=== PATIENT | male | born 1970 | race Caucasian/White ===

== ENCOUNTER 2019-03-04 18:40 | Emergency (ER) | payer OTHER ==
[2019-03-04 18:44] VITALS: BP 130/79; TEMP 97.5; BMI 31.0
[2019-03-04] MEDS: DECADRON 4 MG/ML SDV IM STA (18:55)
[2019-03-04] MEDS: ZOFRAN 4 MG/2 ML IM STA (18:55)
[2019-03-04] MEDS: DILAUDID 1 MG/ML SYRINGE IM STA (18:56)
--- NOTE | 2019-03-04 19:05 | ED.PDOC ---
General ED Provider: Dr. JULIETTE CASTRO-ER Chief Complaint: Back Pain Stated Complaint: my back hurts down to my right foot Time Seen by Physician: 18:45 Mode of Arrival: Walk-In Information Source: Patient, Family Exam Limitations: No limitations Primary Care Provider: JAKE VILLALOBOS Nursing and Triage Documentation Reviewed and Agree: Yes Does patient meet sepsis criteria?: No System Inflammatory Response Syndrome: Not Applicable Sepsis Protocol: For patient's 13 years and over: Temp is 96.8 and below OR 101 and greater Pulse >90 BPM Resp >20/minute Acutely Altered Mental Status Are patient's symptoms suggestive of a new infection, such as: -Pneumonia -Skin, Soft Tissue -Endocarditis -UTI -Bone, Joint Infection -Implantable Device -Acute Abdominal Infection -Wound Infection -Meningitis -Blood Stream Catheter Infection -Unknown Musculoskeletal Complaint Exam - Back Pain Complaint/Exam Mechanism of Injury: Reports: No known trauma Onset/Duration: 24 hrs Symptoms Are: Still present Timing: Constant Episodes Lasting: Hours Initial Severity: Mild Current Severity: Moderate Location: Reports: Discrete Character: Reports: Dull, Aching Aggravating: Reports: Movements, Lifting, Bending Associated Signs and Symptoms: Denies: Swelling, Redness, Bruising, Fever, Weakness, Numbness, Tingling, Abdominal pain, Flank pain, Bladder incontinence, Bowel incontinence, Weight loss, Pain with weight bearing Related History: Reports: Similar episode TAD Risk Factors: Reports: None AAA Risk Factors: Reports: None Cauda Equina Risk Factors: Reports: None Epidural Abcess Risk Factors: Reports: None Related Surgical History: Reports: None Focal Tenderness: Yes Paraspinal Muscle Tenderness: No Paraspinal Muscle Spasm: No Scoliosis: No Lordosis: No Kyphosis: No SLR Test: Right Negative, Left Negative Hip Motion Testing Pain: Right Negative, Left Negative Focal Weakness: Present: None Focal Sensory Loss: Present: None Gait: Present: Normal Differential Diagnoses: Herniated Disk Review of Systems - Review Of Systems Constitutional: Reports: No symptoms Eyes: Reports: No symptoms Ears, Nose, Mouth, Throat: Reports: No symptoms Respiratory: Reports: No symptoms Cardiac: Reports: No symptoms GI: Reports: No symptoms : Reports: No symptoms Musculoskeletal: Reports: Back pain Skin: Reports: No symptoms Neurological: Reports: Numbness Endocrine: Reports: No symptoms Hematologic/Lymphatic: Reports: No symptoms All Other Systems: Reviewed and Negative Past Medical History - Past Medical History Previously Healthy: No Endocrine: Reports: Unknown Cardiovascular: Reports: Unknown Respiratory: Reports: Unknown Hematological: Reports: Unknown Gastrointestinal: Reports: Unknown Genitourinary: Reports: Unknown Neuro/Psych: Reports: Unknown Musculoskeletal: Reports: Unknown Cancer: Reports: Unknown - Surgical History General Surgical History: Reports: Unknown - Family History Family History: Reports: Unknown - Social History Smoking Status: Never smoker Hx Substance Use: No Alcohol Screening: Occasionally - Immunizations Tetanus Shot up to Date: Yes Physical Exam - Physical Exam Appearance: Well-appearing, No pain distress, Well-nourished Eyes: ENRIKE, EOMI, Conjunctiva clear ENT: Ears normal, Nose normal, Oropharynx normal Neck: Supple Respiratory: Airway patent, Breath sounds clear, Breath sounds equal, Respirations nonlabored Cardiovascular: RRR, Pulses normal, No rub, No murmur GI/: Soft, Nontender, No masses, Bowel sounds normal, No Organomegaly Musculoskeletal: Limited ROM, Limited strength Skin: Warm, Dry, Normal color Neurological: Sensation intact, Alert, Oriented Psychiatric: Affect appropriate, Mood appropriate Interpretation - Radiology Interpretation Radiology Interpretation By: Radiologist Radiology Results: Positive Exam Interpreted: CT Scan Critical Care Note - Critical Care Note Total Time (mins): 0 Course - Course Orders, Labs, Meds: Orders Category Date Time Status Dexamethasone 4 mg/ml Inj [Decadron 4 mg/ml Sdv] MEDS 03/04/19 18:46 Discontinued 4 mg IM ONCE STA Hydromorphone HCl [Dilaudid 1 mg/ml Syringe] MEDS 03/04/19 18:47 Discontinued 2 mg IM ONCE STA Ondansetron HCl/Pf [Zofran 4 mg/2 ml] MEDS 03/04/19 18:47 Discontinued 4 mg IM ONCE STA CT LUMBAR SPINE W/O CONTRAST Stat RADS 03/04/19 18:46 Completed Medications Discontinued Medications Generic Name Dose Route Start Last Admin Trade Name Freq PRN Reason Stop Dose Admin Dexamethasone Sodium Phosphate 4 mg 03/04/19 18:46 03/04/19 18:55 Decadron 4 Mg/Ml Sdv IM 03/04/19 18:47 4 mg ONCE STA Administration Hydromorphone HCl 2 mg 03/04/19 18:47 03/04/19 18:56 Dilaudid 1 Mg/Ml Syringe IM 06/09/19 18:48 2 mg ONCE STA Administration Ondansetron HCl 4 mg 03/04/19 18:47 03/04/19 18:55 Zofran 4 Mg/2 Ml IM 03/04/19 18:48 4 mg ONCE STA Administration Vital Signs: Temp Pulse Resp BP Pulse Ox 03/04/19 18:40 97.5 F L 90 18 130/79 95 Departure - Departure Time of Disposition: 19:20 Disposition: HOME SELF-CARE Discharge Problem: Sciatica Qualifiers: Laterality: right Qualified Code(s): M54.31 - Sciatica, right side Instructions: Sciatica (ED) Condition: Good Pt referred to PMD for follow-up: Yes IPMP verified?: No Additional Instructions: f/u with dr villalobos Allergies/Adverse Reactions: Allergies No Known Allergies Allergy (Unverified 03/04/19 18:44) Home Medications: Ambulatory Orders 1 [No Reported Medications] 03/04/19 Disposition Discussed With: Patient, Family
--- NOTE | 2019-03-04 19:17 | CT ---
Exam: CT lumbar spine without intravenous contrast. Comparison: CT abdomen pelvis performed 10/08/2012. Reason for exam: Sciatica. FINDINGS: No vertebral body height loss is seen. No evidence of listhesis. There is multilevel deg enerative disease with intervertebral body disc space height loss and osteophyte formation. T12 - L1: Mild central canal and foraminal narrowing secondary to facet hypertrophy L1-L2: Small broad-based disc bulge with facet hypertrophy resulting in mild central canal and dirk inal narrowing. L2-L3: Small broad-based disc bulge with facet hypertrophy resulting in mild central canal and forami nal narrowing. L3-L4: Broad-based disc bulge with facet hypertrophy resulting in mild to moderate central canal and foraminal narrowing. L4-L5: Broad-based disc bulge with facet hypertrophy resulting in mild to moderate central canal and foraminal narrowing L5-S1: Broad-based disc bulge with facet hypertrophy resulting in mild central canal and foraminal na rrowing. Impression: No acute fracture or listhesis in the lumbar spine with mild multilevel degenerative disease. If cli nical concern exists for radiculopathy or myelopathy, MRI could be performed for further characteriza tion.
== END 2019-03-04 19:30 | disposition home or self-care (01) ==
LOC: ED 18:40
DX: M54.31 Sciatica, right side (principal)
CPT/HCPCS: 96372; 99282

== ENCOUNTER 2019-03-06 08:29 | Outpatient (CLI) ==
--- NOTE | 2019-03-06 11:39 | MRI ---
EXAM: Lumbar spine MRI without contrast. HISTORY: Low back pain. Disc bulge. COMPARISON: Lumbar spine CT scan 03/04/2019. TECHNIQUE: Multiplanar, multisequence MR images were acquired of the lumbar spine without contrast. FINDINGS: Five non-rib bearing lumbar vertebra are present. Conus medullaris ends at L1-2 and has n ormal morphology and signal intensity. The lumbar vertebra normal in height, AP alignment and intrin sic bone marrow signal. Marginal osteophytes are present in the lumbar spine and there is mild endpl ate irregularity with from T11-12 through L5-S1 with small chronic Schmorl's nodes from T11 to L4 and at S1.. Central disc dessication is present in the lumbar spine and there is mild disc space narrow ing at L4-5 and L5-S1. The partially visualized liver, spleen, adrenal glands and right kidney are unremarkable. There is a probable small simple cyst in the left kidney. There are no paravertebral masses. L1-2: The intervertebral disc is normal. There is minor right neural foraminal stenosis. L2-3: There is a mild disc bulge that is asymmetric to the right which minimally narrows the inferio r right neural foramen. There is no central canal stenosis. L3-4: There is a minor disc bulge that it is asymmetric to the left which minimally narrows the infe rior left neural foramen. There is no central canal stenosis. L4-5: There is a mild disc bulge and mild bilateral facet arthropathy and ligamentum flavum hypertro phy. There is mild bilateral foraminal stenosis. There is no central canal stenosis. L5-S1: There is a mild spondylotic disc bulge that is asymmetric posteriorly and to the right which mildly effaces the right anterior subarachnoid space and narrows the inferior right neural foramen. There is mild right foraminal stenosis. IMPRESSION: 1. Mild lumbar degenerative endplate changes with small chronic Schmorl's nodes from T11-12 through L5-S1. 2. No lumbar disc herniations, pars interarticularis defects or central canal stenosis.
== END 2019-03-06 08:30 | disposition home or self-care (01) ==
LOC: RAD 08:29
PROVIDERS: ATTEND Internal Medicine
DX: M54.5 Low back pain (principal); M51.06 Intervertebral disc disorders with myelopathy, lumbar region